=== PATIENT | male | born 1970 | race Two or more races ===

== ENCOUNTER 2019-02-14 16:27 | Emergency (ER) | payer SELFPAY ==
[~2019-02-14] VITALS: Ht 172.7 cm; Wt 117.9 kg
--- NOTE | 2019-02-14 17:14 | Emergency Room Report ---
History of Present Illness General Chief Complaint: Alcohol Intoxication Source: EMS Present Illness HPI Patient has a history of alcohol abuse. Patient apparently drinks daily and sleeps out of his car. Patient went to his mother's house and began to drink large amounts of alcohol. At which time then he went to the bathroom to take a shower and was found unconscious in the bathroom. Paramedics were contact and the patient was brought here for further evaluation. Patient smells of alcohol and apparently has been drinking. Patient is arousable maintain his airway. No further history is available at this time. Symptoms noted to be severe. No other modifying factors. No other associated signs and symptoms. No other complaints were noted. Allergies: Coded Allergies: No Known Allergies (Unverified , 02/14/19) Patient History Past Medical History: unable to obtain Past Surgical History: unable to obtain Pertinent Family History: unable to obtain Social History: Reports: alcohol use Reviewed Nursing Documentation: PMH: Agreed; PSxH: Agreed Nursing Documentation-PMH Past Medical History: No History, Except For History Of Psychiatric Problem: No - alcohol abuse Review of Systems All Other Systems: negative except mentioned in HPI Physical Exam Vital Signs Date Time Temp Pulse Resp B/P (MAP) Pulse Ox O2 Delivery O2 Flow Rate FiO2 02/14/19 16:26 98.1 92 16 136/94 (108) 99 Room Air Sp02 EP Interpretation: reviewed, normal General Appearance: lethargic, obese Head: atraumatic Eyes: bilateral eye normal inspection ENT: moist mucus membranes Neck: normal inspection, full range of motion, supple Respiratory: normal inspection, lungs clear, normal breath sounds, no respiratory distress, no retraction, no wheezing Cardiovascular #1: regular rate, rhythm, no edema Gastrointestinal: normal inspection, normal bowel sounds, soft Musculoskeletal: normal inspection Neurologic: responsive, other - Sleepy grossly nonfocal Psychiatric: other - Unable to fully assess poor mental status Skin: normal inspection, normal color, no rash Medical Decision Making Diagnostic Impression: Primary Impression: Acute alcoholic intoxication ER Course Patient presents emergency department today with acute alcohol intoxication and altered mental status. Differential considerations include drug abuse, alcohol intoxication, electrolyte abnormality just name a few. Patient's exam and history is consistent with alcohol intoxication. Patient was monitored emergency department given fluids exam multiple times. He appears to be improving. He is exhibiting good O2 saturation when he is awake and has no evidence of any airway issues. No evidence of any trauma. Therefore I felt that no radiographic indications at this time. Will monitor patient until he is clinically sober and will discharge at that time. Patient will be advised to stop drinking and to follow with primary care physician or return to ER for any worsening symptoms and as needed. Last Vital Signs Date Time Temp Pulse Resp B/P (MAP) Pulse Ox O2 Delivery O2 Flow Rate FiO2 02/14/19 16:36 92 16 Room Air 02/14/19 16:26 98.1 136/94 (108) 99 Status: improved Disposition: HOME, SELF-CARE Condition: Stable Scripts No Active Prescriptions or Reported Meds Cliff Irving MD Feb 14, 2019 17:14
[2019-02-14 17:44] VITALS: BP 121/91
[2019-02-14 22:50] VITALS: BP 121/91
== END 2019-02-14 22:51 | disposition home or self-care (01) ==
LOC: EDBD 16:27 → EMR 17:00
DX: F10.129 Alcohol abuse with intoxication, unspecified (principal); R41.82 Altered mental status, unspecified
CPT/HCPCS: 96360; 99284